=== PATIENT | female | born 1965 | race Caucasian/White ===

== ENCOUNTER 2016-10-26 18:25 | Emergency (ER) ==
[2016-10-26 18:32] VITALS: BP 138/77
[2016-10-26] MEDS ORDERED: PHENERGAN PO ONE (18:54)
--- NOTE | 2016-10-26 19:20 | PROVIDER DOCUMENTATION ---
HPI-General Adult - General Chief Complaint: Cold Symptoms Stated Complaint: FLU LIKE SX Time Seen by Provider: 10/26/16 18:45 Source: patient Allergies/Adverse Reactions: Patient Allergies Allergy/AdvReac Type Severity Reaction Status Date / Time codeine AdvReac NAUSEA Verified 10/26/16 18:50 Sulfa (Sulfonamide AdvReac NAUSEA Verified 10/26/16 18:50 Antibiotics) Home Medications: Home Medication List Medication Instructions Recorded Confirmed Last Taken Type Ibuprofen [Motrin] 400 mg PO PRN PRN 10/26/16 10/26/16 10/26/16 10:30 History Meloxicam [Mobic] 7.5 mg PO DAILY PRN PRN #15 tablet 10/26/16 Unknown Rx Ondansetron Odt [Zofran 4 mg Odt] 4 mg PO Q6H PRN PRN 10/26/16 10/26/16 Unknown History Oseltamivir Phosphate [Tamiflu] 30 mg PO DAILY 10/26/16 10/26/16 Unknown History Promethazine [Phenergan] 25 mg PO Q6H PRN PRN #20 tablet 10/26/16 Unknown Rx - History of Present Illness -Gen Adult Nature of Presenting Problems: Pt presents today c complaints of flu-like symptoms X 5 days. She reports that her son was diagnosed c the flu last night and she began to have similar symptoms 2 days later. She was given tamiflu but states that she believes that it is making her nauseated. She denies any other issues or complaints. Location of Pain/Injury: reports: generalized Quality of Pain: reports: aching Severity: reports: mild, moderate Onset/Duration: reports: 5 days ago Timing: reports: still present Associated Symptoms: reports: cough, fatigue, muscle aches Similar Symptoms Previously?: Yes Recently seen or treated by another doctor?: Yes Review of Systems - Adult - REVIEW OF SYSTEMS - ADULT Constitutional: reports: chills, fever, fatique. denies: night sweats, weight gain Eyes: reports: no symptoms reported. denies: discharge, dry eyes Ears, Nose, Mouth & Throat: reports: no symptoms reported. denies: ear discharge, ear pain Cardiovascular: reports: no symptoms reported. denies: chest pain, edema Respiratory: reports: cough. denies: chronic cough, pleurisy, shortness of breath Gastrointestinal: reports: nausea. denies: abdominal pain, hematemesis Genitourinary: reports: no symptoms reported. denies: dysuria, discharge Musculoskeletal: reports: muscle aches. denies: bone pain, back pain Integumentary: reports: no symptoms reported. denies: hives, hair loss Neurological: reports: no symptoms reported. denies: ataxia, dizziness/vertigo Psychiatric: reports: no symptoms reported. denies: anxiety, anti-depressant use Endocrine: reports: no symptoms reported Hematologic/Lymphatic: reports: no symptoms reported Allergic/Immunologic: reports: no symptoms reported All Other Systems: Reviewed and Negative Past History - Adult - PAST MEDICAL HISTORY-ADULT Review of Records: reports: Old Records Reviewed, Nursing Assessment Review, Medications Reviewed, Social history reviewed & non-contributory. Major Childhood Illnesses: reports: denies history Cardiovascular: reports: denies history Respiratory: reports: denies history Gastrointestinal: reports: denies history Obstetrical/Gynecological: reports: denies history Genitourinary: reports: denies history Musculoskeletal: reports: denies history Neurological: reports: denies history Endocrine/Immune: reports: denies history Other Conditions: reports: denies history Physical Exam-General - PHYSICAL EXAM-ADULT Initial Vital Signs Reviewed: Yes - CONSTITUTIONAL General Appearance: appears well, alert, no apparent distress - EYES Eyes: PERRL/EOMI, pink conjunctivae - HEAD, EARS, NOSE, MOUTH & THROAT HENMT: normocephalic/atraumatic, moist mucous membranes, normal ENT inspection - NECK Neck: non-tender, full range of motion, supple, normal inspection - RESPIRATORY Respiratory: chest non-tender, lungs clear, normal breath sounds, no pleuratic chest pain, no respiratory distress, no accessory muscle use. negative: respiratory distress, decreased breath sounds, accessory muscle use, crackles, rales, rhonchi, stridor, wheezing - CARDIOVASCULAR Cardiovascular: normal peripheral pulses, regular rate, rhythm, no edema, no gallop, no JVD, no murmur. negative: bradycardia, tachycardia - GASTROINTESTINAL (ABDOMEN) Abdominal Exam: normal bowel sounds, non tender, soft, no organomegaly, no pulsatile mass. negative: abdominal bruit, abnormal bowel sounds, distended, guarding, rigid, rebound, tenderness - MUSCULOSKELETAL Back Exam: normal inspection, no CVA tenderness, no vertebral tenderness. negative: CVA tenderness, muscle spasm, vertebral tenderness Extremity: normal range of motion, non-tender, normal gait, normal inspection - SKIN Integumentary: normal color, normal turgor, warm/dry - NEUROLOGIC Neurologic: grossly normal, no motor/sensory deficits - PSYCHIATRIC Psych/Mental Status: normal mood/affect, normal thought content, normal thought process, oriented x 3 Progress - PLAN OF CARE/RESULTS Progress/Plan/Lab Results: Orders Category Date Time Status CHEST-2 VIEWS [RAD] Stat Exams 10/26/16 18:33 Taken Promethazine [Phenergan] Med 10/26/16 18:54 Discontinued 25 mg PO NOW ONE Orders Category Date Time Status CHEST-2 VIEWS [RAD] Stat Exams 10/26/16 18:33 Taken Promethazine [Phenergan] Med 10/26/16 18:54 Discontinued 25 mg PO NOW ONE Vital Signs Temp Pulse Resp BP Pulse Ox 10/26/16 18:28 98.3 F 76 20 138/77 100 codeine Adverse Reaction (Verified 10/26/16 18:50) NAUSEA Sulfa (Sulfonamide Antibiotics) Adverse Reaction (Verified 10/26/16 18:50) NAUSEA Ibuprofen [Motrin] 400 mg PO PRN PRN 10/26/16 Ondansetron Odt [Zofran 4 mg Odt] 4 mg PO Q6H PRN PRN 10/26/16 Oseltamivir Phosphate [Tamiflu] 30 mg PO DAILY 10/26/16 - XRAY 1 XRAY Study: Chest XRAY Interpretation: nad Departure - Departure Time of Disposition Order: 19:20 DIAGNOSIS: Flu-like symptoms Disposition: HOME 01 Certified Medical Emergency: Emergent Condition: Good Additional Instructions: Take medication as prescribed. Follow up with your primary care provider. ED Follow Up Instructions: You have been treated by a care provider in the Emergency Department. These instructions are being provided to you so you can have an understanding of how to care for yourself upon discharge. Upon discharge from the Emergency Department, you are responsible for making arrangements for follow-up care by a physician of your choice. Take all prescribed medications as directed. Return to the Emergency Department immediately for any new or worsening symptoms. You may call the Physician Referral phone number at [phone] to obtain a list of Physicians who are taking new patients. Prescriptions: Meloxicam [Mobic] 7.5 mg PO DAILY PRN PRN #15 tablet PRN Reason: Pain Promethazine [Phenergan] 25 mg PO Q6H PRN PRN #20 tablet PRN Reason: Nausea Attestation - Physician/ ALVARO Attestation Patient care was provided by Advanced Practice Provider:: Yes Advanced Practice Provider:: Tyler Baeza Advanced Practice Provider documentation review:: The Mid-level provider documentation, treatment plan and medical decision making was reviewed by the physician who agrees with all treatment and medical decision making by the MLP.
--- NOTE | 2016-10-27 10:42 | Diag Imaging Result Document ---
PROCEDURE NAME: CHEST-2 VIEWS - 10/26/2016 CHEST, 2 VIEWS: COMPARISON: No comparison exam. FINDINGS: Heart size is normal. The lungs appear clear. There is no pleural effusion or pneumothorax seen. IMPRESSION: No evidence of acute disease.
== END 2016-10-26 19:25 | disposition home or self-care (01) ==
LOC: ED 18:25
DX: J11.1 Influenza due to unidentified influenza virus with other respiratory manifestations (principal); R05 Cough; R50.9 Fever, unspecified; R53.83 Other fatigue; R11.0 Nausea; M79.1 Myalgia
CPT/HCPCS: 71020; 99283